=== PATIENT | male | born 1975 | race Caucasian/White ===

== ENCOUNTER 2018-06-06 01:38 | Emergency (ER) | payer MEDICAID, OTHER ==
[~2018-06-06] VITALS: Ht 177.8 cm; Wt 62.9 kg
[2018-06-06 01:45] VITALS: BP 118/74
--- NOTE | 2018-06-06 03:06 | NUR ---
Pt given ostomy supplies and cleaning supplies. Pt in room changing ostomy, denies questions/concerns
--- NOTE | 2018-06-06 03:30 | NUR ---
Pt requesting another ostomy kit, states he dropped it on the floor and now it wont stick. MD notified, second kit ordered, s[facility]is up notified to help get kit from [facility], due to "distaster training" sarkis up unable to get kit at this time, pt updated on wait time
--- NOTE | 2018-06-06 03:44 | NUR ---
Second ostomy kit given to pt.
--- NOTE | 2018-06-06 04:06 | NUR ---
Pt given multiple supplies to assist with cleaning his ostomy, pt denies need for any help. Given DC papers, denies any questions/concerns. Will recheck on pt soon to ensure he has ostomy in place.
--- NOTE | 2018-06-06 04:26 | NUR ---
Ostomy bag does not fit with waffer that was given to patient. 2 RN's attempted to assist pt but waffer does not fit, sulfide head operator notified.
--- NOTE | 2018-06-06 04:41 | NUR ---
Ostomy bag successfully applied to pts stoma, stoma and surrounding area cleaned and skin barrier applied.
--- NOTE | 2018-06-06 04:49 | NUR ---
Pt requesting new set of clothes after ostomy leaked on his pants and shirt.
== END 2018-06-06 05:24 | disposition home or self-care (01) ==
LOC: ED 05:15
DX: K51.90 Ulcerative colitis, unspecified, without complications (principal)
CPT/HCPCS: 99284

== ENCOUNTER 2018-06-06 21:33 | Emergency (ER) | payer OTHER ==
[~2018-06-06] VITALS: Ht 177.8 cm; Wt 63.0 kg
--- NOTE | 2018-06-06 21:48 | NUR ---
[facility]. REPORT RECEIVED FROM EMS. PT HAD WOUND(LAC ABOUT 2CM ROUND) ON LEFT NECK BECAUSE PT TRIED TO PICK INGROWN HAIR AT [facility]. PT HAS HX OF SCHIZOPHRENIA/BORDERLINE DM/ HTN. PT HAS OSTOMY BAG. PT'S AOX4. RESPS EVEN AND UNLABORED. ALL MONITORS IN PLACE. CALL LIGHT WITHIN REACH. PT DENIES ANY PAIN AT THIS TIME.
[2018-06-06] MEDS ORDERED: ZIPRASIDONE 20 MG INJ IM ONE ×3 (22:00→23:30)
[2018-06-06] MEDS ORDERED: KETAMINE 10 MG/ML, 20ML IV ONE (22:00)
[2018-06-06] MEDS ORDERED: LIDOCAINE 2%, 20ML INFIL ONE (22:00)
[2018-06-06] MEDS ORDERED: KETAMINE 10 MG/ML, 20ML ONE (22:15)
--- NOTE | 2018-06-06 22:20 | NUR ---
pt refused CT .
--- NOTE | 2018-06-06 22:35 | NUR ---
TO CT WITH EDMD,EDT, SECURITY.
--- NOTE | 2018-06-06 22:42 | NUR ---
BACK TO ROOM FROM CT.
[2018-06-06] MEDS ORDERED: BACITRACIN ZINC OINT 500U/GM, 0.9 GM ONE (22:50)
--- NOTE | 2018-06-06 22:53 | NUR ---
NATHALY STAPLED ON LAC (LEFT NECK) AT THIS TIME.
--- NOTE | 2018-06-06 22:56 | NUR ---
SEE PAPER CHARTING FOR SADATION.
--- NOTE | 2018-06-06 23:01 | NUR ---
THIS RN MONITORING PT'S VS IN ROOM.
--- NOTE | 2018-06-06 23:21 | NUR ---
PT RESPOND TO VERBAL STIMULI AT THIS TIME. PT STILL SLEEPING IN [facility]. RESPS EVEN AND UNLABORED. ALL MONITORS IN PLACE. CALL LIGHT WITHIN REACH.
--- NOTE | 2018-06-07 00:27 | NUR ---
pt sleeping in [facility]. resps even and unlabored. all monitors in place. call light within reach.
--- NOTE | 2018-06-07 01:15 | NUR ---
pt sleeping in [facility]. resps even and unlabored. resps even and unlabored. all monitors in place. call light within reach. sitter monitoring from hallway for safety.
[2018-06-07 02:12] VITALS: BP 107/73
--- NOTE | 2018-06-07 02:14 | NUR ---
pt sleeping in [facility]. resps even and unlabored. all monitors in place. call light within reach. sitter monitoring from [facility] for safety.
--- NOTE | 2018-06-07 02:56 | NUR ---
SECURITY PAGED TO DC. PT WAS WHEELED TO DC WITH SECURITY. PT'S AOX4. RESPS EVEN AND UNLABORED. NO ACUTE DISTRESS AT DC.
== END 2018-06-07 02:57 | disposition home or self-care (01) ==
LOC: ED 22:22
DX: S11.91XA Laceration without foreign body of unspecified part of neck, initial encounter (principal); F15.150 Other stimulant abuse with stimulant-induced psychotic disorder with delusions; Z72.9 Problem related to lifestyle, unspecified; F20.9 Schizophrenia, unspecified; X58.XXXA Exposure to other specified factors, initial encounter; Y93.89 Activity, other specified; Y92.89 Other specified places as the place of occurrence of the external cause; Y99.8 Other external cause status
CPT/HCPCS: 12042; 70450; 72125; 96372; 99152; 99153; 99285; J3486

== ENCOUNTER 2018-11-13 16:53 | Emergency (ER) | payer MEDICAID ==
[~2018-11-13] VITALS: Ht 170.2 cm; Wt 65.0 kg
[2018-11-16 07:58] VITALS: BP 108/76
== END 2018-11-16 15:02 | disposition home or self-care (01) ==
LOC: ED 22:25
DX: F15.159 Other stimulant abuse with stimulant-induced psychotic disorder, unspecified (principal); E86.0 Dehydration
CPT/HCPCS: 36415; 80053; 80307; 85025; 93005; 96360; 96361; 96372; 99284; J3486; J7030

== ENCOUNTER 2019-03-10 04:44 | Emergency (ER) | payer MEDICAID ==
[~2019-03-10] VITALS: Ht 177.8 cm; Wt 77.0 kg
[~2019-03-10 04:44] MED LIST: ONDA4TAB7 PO; POTA20PA25 PO
--- NOTE | 2019-03-10 05:24 | NUR ---
PT PROVIDED WITH OSTOMY SUPPLIES. PT STATES HE IS ABLE TO APPLY IT HIMSELF. PT GIVEN SKIN BARRIER FILM AND SKIN CLEANING SUPPLIES WELL. PT THANKFUL.
[2019-03-10 05:37] VITALS: BP 138/74
--- NOTE | 2019-03-10 05:37 | NUR ---
PT WAS ABLE TO REPLACE HIS OSTOMY BAG WITH SUCCESS. PT GIVEN ADDITIONAL SUPPLIES. PT DENIES FURTHER NEEDS AT THIS TIME.
== END 2019-03-10 06:00 | disposition home or self-care (01) ==
LOC: ED 05:16
DX: L03.311 Cellulitis of abdominal wall (principal); Z72.9 Problem related to lifestyle, unspecified; Z93.2 Ileostomy status
CPT/HCPCS: 99283

== ENCOUNTER 2019-03-11 08:11 | Emergency (ER) | payer MEDICAID ==
[~2019-03-11] VITALS: Ht 177.8 cm; Wt 76.6 kg
--- NOTE | 2019-03-11 09:21 | NUR ---
CALLED FROM LOBBY X1, NIL.
--- NOTE | 2019-03-11 09:25 | NUR ---
PT AMBULATORY WITH STEADY GAIT FROM LOBBY TO ROOM NOW.
--- NOTE | 2019-03-11 09:28 | NUR ---
PT STATES HE SLIPPED AND FELL THIS MORNING AND NOW HAS PAIN TO HIS RUQ OSTOMY SITE. S/P COLECTOMY IN FEBRUARY. PT RESTING ON GURNEY WITH NO OSTOMY BAG IN PLACE BUT HAS NEW OSTOMY BAG NEXT TO HIM. OSTOMY RED IN COLOR WITH STOOL COMING OUT. RESTING ON GURNEY. PAULINE. MELISSA AT BEDSIDE ASSESSING PT NOW.
--- NOTE | 2019-03-11 09:42 | NUR ---
DENIES LOC DURING FALL. SKIN INTACT. OSTOMY SUPPLIES ORDERED. PT PROVIDED WITH CLEAN SHIRT.
--- NOTE | 2019-03-11 10:49 | NUR ---
REPORT GIVEN TO RUBINA FULLER
--- NOTE | 2019-03-11 10:59 | NUR ---
LABS DRAWN. PT TO CT VIA [facility].
[2019-03-11 11:09] LABS: BASOPHILS # (AUTO) 0.05 x10^3/uL (0-0.1); BASOPHILS % (AUTO) 1 % (0-1); EOSINOPHILS # (AUTO) 0.05 x10^3/uL (0-0.4); EOSINOPHILS % (AUTO) 1 % (1-7); LYMPHOCYTES # (AUTO) 2.65 x10^3/uL (1-3.4); LYMPHOCYTES % (AUTO) 27 % (22-44); MD NO; MEAN CORPUSCULAR HEMOGLOBIN 30.6 pg (27.5-34.5); MEAN CORPUSCULAR HGB CONC 33.2 g/dL (33.2-36.2); MEAN CORPUSCULAR VOLUME 92.3 fL (81-97); MEAN PLATELET VOLUME 7.1 fL (7.4-10.4); MONOCYTES # (AUTO) 1.13 x10^3/uL (0.2-0.8); MONOCYTES % (AUTO) 12 % (2-9); NEUTROPHILS # (AUTO) 5.96 x10^3/uL (1.8-6.8); NEUTROPHILS % (AUTO) 61 % (42-75); PLATELET COUNT 330 x10^3/uL (130-400); RED BLOOD COUNT 3.75 x10^6/uL (4.38-5.82); RED CELL DISTRIBUTION WIDTH 16.8 % (9.4-14.8)
[2019-03-11 11:19] LABS: ALBUMIN 4.4 g/dL (3.4-5.0); ANION GAP 16 mmol/L (5-15); CALCIUM 9.5 mg/dL (8.5-10.1); CHLORIDE 106 mmol/L (98-107); CREATININE 2.04 mg/dL (0.7-1.3)
--- NOTE | 2019-03-11 11:59 | NUR ---
NEW OSTOMY & PERSONAL CARE SUPPLIES PROVIDED TO PT, HE STATES HE CAN CHANGE HIS OWN OSTOMY BAG.
[2019-03-11 12:58] VITALS: BP 103/70
--- NOTE | 2019-03-11 13:04 | NUR ---
PT WAS ABLE TO CHANGE HIS OSTOMY BAG WITHOUT DIFFICULTY. ADDITIONAL SUPPLIES SENT WITH PT. D/C INSTRUCTIONS, MEDS & F/U APPT'S RV'WD WITH PT, HE VERBALIZES UNDERSTANDING. CLEAN PANTS AND SHIRT PROVIDED TO PT.
== END 2019-03-11 13:24 | disposition home or self-care (01) ==
LOC: ED 10:05
DX: L03.311 Cellulitis of abdominal wall (principal); E87.6 Hypokalemia; E87.1 Hypo-osmolality and hyponatremia; N28.9 Disorder of kidney and ureter, unspecified; Z93.2 Ileostomy status; Z90.49 Acquired absence of other specified parts of digestive tract; Z72.9 Problem related to lifestyle, unspecified
CPT/HCPCS: 36415; 74176; 80048; 82040; 85025; 99284

== ENCOUNTER 2019-03-12 00:15 | Emergency (ER) | payer MEDICAID ==
[~2019-03-12] VITALS: Ht 177.8 cm; Wt 76.0 kg
[2019-03-12 00:17] VITALS: BP 140/90
[2019-03-12 00:51] LABS: BASOPHILS # (AUTO) 0.03 x10^3/uL (0-0.1); BASOPHILS % (AUTO) 0 % (0-1); EOSINOPHILS # (AUTO) 0.05 x10^3/uL (0-0.4); EOSINOPHILS % (AUTO) 1 % (1-7); LYMPHOCYTES # (AUTO) 1.97 x10^3/uL (1-3.4); LYMPHOCYTES % (AUTO) 20 % (22-44); MD NO; MEAN CORPUSCULAR HEMOGLOBIN 31.2 pg (27.5-34.5); MEAN CORPUSCULAR HGB CONC 33.5 g/dL (33.2-36.2); MEAN CORPUSCULAR VOLUME 93.2 fL (81-97); MEAN PLATELET VOLUME 7.4 fL (7.4-10.4); MONOCYTES # (AUTO) 0.89 x10^3/uL (0.2-0.8); MONOCYTES % (AUTO) 9 % (2-9); NEUTROPHILS # (AUTO) 6.68 x10^3/uL (1.8-6.8); NEUTROPHILS % (AUTO) 70 % (42-75); PLATELET COUNT 328 x10^3/uL (130-400); RED BLOOD COUNT 3.76 x10^6/uL (4.38-5.82); RED CELL DISTRIBUTION WIDTH 16.5 % (9.4-14.8)
--- NOTE | 2019-03-12 00:57 | NUR ---
REPORT GIVEN TO RUBINA ROSE
[2019-03-12 00:58] LABS: ALBUMIN 4.6 g/dL (3.4-5.0); ANION GAP 13 mmol/L (5-15); CALCIUM 9.4 mg/dL (8.5-10.1); CHLORIDE 103 mmol/L (98-107); CREATININE 2.01 mg/dL (0.7-1.3)
--- NOTE | 2019-03-12 01:12 | NUR ---
Potassium requested from pharmacy.
[2019-03-12] MEDS ORDERED: POTASSIUM CHLORIDE 10% 40 MEQ/30 ML UDC PO ONE (01:30)
== END 2019-03-12 01:39 | disposition home or self-care (01) ==
LOC: ED 00:21
DX: R10.84 Generalized abdominal pain (principal); F15.10 Other stimulant abuse, uncomplicated; R44.3 Hallucinations, unspecified; E87.1 Hypo-osmolality and hyponatremia; E87.6 Hypokalemia; R11.0 Nausea; Z93.3 Colostomy status
CPT/HCPCS: 36415; 74021; 80048; 82040; 85025; 99284